=== PATIENT | male | born 1955 | race Caucasian/White ===

== ENCOUNTER 2020-06-05 12:33 | Inpatient (IN) | payer MEDICAID ==
[~2020-06-05] VITALS: Ht 170.2 cm; Wt 90.7 kg
[2020-06-05] MEDS ORDERED: DEXAMETHASONE 4MG/ML 1ML VIAL IV ONE (13:15)
[2020-06-05 14:00] LABS: BASOPHILS % 0.7 % (0.0-2.0); EOSINOPHILS % 0.5 % (0.0-5.0); LYMPHOCYTES % 10.6 % (20.0-50.0); MEAN CORPUSCULAR HEMOGLOBIN 29.8 pg (28.0-32.0); MEAN CORPUSCULAR VOLUME 89.5 fL (80.0-94.0); MEAN PLATELET VOLUME 7.3 fl (7.4-10.4); MONOCYTES % 9.4 % (2.0-8.0); NEUTROPHILS % 78.8 % (40.0-76.0); PLATELET 488 x1000/uL (130-400); RED BLOOD CELL COUNT 4.03 mill/uL (4.7-6.1); RED CELL DISTRIBUTION WIDTH 13.8 % (11.6-14.6)
[2020-06-05 14:07] LABS: CHLORIDE 102 mEq/L (98-107)
[2020-06-05 14:13] LABS: INR 1.2; PROTHROMBIN TIME 12.4 sec (9.6-11.0)
[2020-06-05 14:15] LABS: CREATINE KINASE 47 IU/L (39-308)
[2020-06-05 14:25] LABS: FIBRINOGEN > 900 mg/dL (200-400)
[2020-06-05] MEDS ORDERED: PIPERACILLIN/TAZ 3.375G PREMIX 50 ML IV SCH (14:30)
[2020-06-05 16:21] LABS: CLARITY URINE CLEAR (CLEAR); COLOR URINE YELLOW (YELLOW); KETONES URINE NEGATIVE (NEGATIVE); LEUKOCYTE ESTERASE URINE NEGATIVE (NEGATIVE); NITRITE URINE NEGATIVE (NEGATIVE); OCCULT BLOOD URINE NEGATIVE (NEGATIVE); PROTEIN URINE NEGATIVE (NEGATIVE); SPECIFIC GRAVITY URINE 1.009 (1.005-1.030)
[2020-06-05] MEDS ORDERED: ONDANSETRON HCL 4MG/2ML INJ IV PRN (18:00)
[2020-06-05] MEDS ORDERED: CLONIDINE 0.1MG TABLET PO PRN (18:00)
[2020-06-05] MEDS ORDERED: KETOROLAC 15MG/ML VIAL IV PRN (18:00)
[2020-06-05] MEDS ORDERED: NA PHOS,M-B/NA PHOS,DI-BA ENEMA 118ML PR PRN (18:00)
[2020-06-05] MEDS ORDERED: NITROGLYCERIN 0.4MG TABLET SL SL PRN (18:00)
[2020-06-05] MEDS ORDERED: ALBUTEROL 6.7GM HFA INHALER ORI PRN (18:00)
[2020-06-05] MEDS ORDERED: ZOLPIDEM TARTRATE 5MG TABLET PO PRN (18:00)
[2020-06-05] MEDS ORDERED: GUAIFENESIN 200MG/10ML SUGAR FREE UDC PO PRN (18:00)
[2020-06-05] MEDS ORDERED: MAGNESIUM/ALUMINUM HYDROXIDE/SIMETHICONE 30ML UDC PO PRN (18:00)
[2020-06-05] MEDS ORDERED: ACETAMINOPHEN 325MG TABLET PO PRN ×2 (18:00)
[2020-06-05 18:53] LABS: FOLIC ACID (FOLATE) SERUM 4.7 ng/mL (>5.38)
[2020-06-05] MEDS ORDERED: CEFTRIAXONE 1 G PREMIX 50 ML IV SCH (20:00)
[2020-06-05] MEDS ORDERED: AZITHROMYCIN 500 MG in DEXT 5% WATER 250 ML IV SCH (20:00)
[2020-06-05] MEDS: ENOXAPARIN 40MG/0.4ML SYR SUBCUT SCH (20:37)
[2020-06-05 22:14] LABS: *AMPHETAMINES SCREEN URINE NEGATIVE (NEGATIVE); *BARBITURATES SCREEN URINE NEGATIVE (NEGATIVE); *COCAINE SCREEN URINE NEGATIVE (NEGATIVE)
[2020-06-05 22:15] LABS: *BENZODIAZEPINES SCREEN URINE NEGATIVE (NEGATIVE); CANNABINOID URINE SCREEN NEGATIVE (NEGATIVE); METHADONE URINE SCREEN NEGATIVE (NEGATIVE); OPIATES URINE SCREEN NEGATIVE (NEGATIVE); PHENCYCLIDINE URINE SCREEN NEGATIVE (NEGATIVE)
[2020-06-05] MEDS: GUAIFENESIN/DM 600MG/30MG ER TAB 12HR PO SCH (22:23)
[2020-06-05] MEDS: FAMOTIDINE 20MG TABLET PO SCH (22:24)
[2020-06-05] MEDS: ASCORBIC ACID 500 MG TABLET PO SCH (22:24)
[2020-06-05] MEDS ORDERED: DEXTROSE 50% WATER 50ML SYRINGE IV PRN (23:00)
[2020-06-05] MEDS ORDERED: FOLIC ACID 1 MG in SODIUM CHLORIDE 0.9% 500 ML IV ONE (23:00)
[2020-06-05] MEDS: INSULIN GLARGINE UD 100 UNITS/ML SYR SUBCUT SCH (23:21)
[2020-06-05 23:54] LABS: CREATINE KINASE 32 IU/L (39-308)
[2020-06-05 23:55] LABS: CREATINE KINASE MB FRACTION < 1.0 ng/mL (0.5-3.6)
[2020-06-06 08:00] VITALS: BP 122/62
[2020-06-06] MEDS: FAMOTIDINE 20MG TABLET PO SCH ×2 (08:23→21:40)
[2020-06-06] MEDS: ASPIRIN 325MG EC TABLET PO SCH (08:23)
[2020-06-06] MEDS: ASCORBIC ACID 500 MG TABLET PO SCH ×2 (08:24→21:40)
[2020-06-06] MEDS: CHOLECALCIFEROL (D3) 1000 UNIT TABLET PO SCH (08:24)
[2020-06-06] MEDS: DEXAMETHASONE 10 MG/ML VIAL IV SCH (09:47)
[2020-06-06] MEDS: GUAIFENESIN/DM 600MG/30MG ER TAB 12HR PO SCH ×2 (09:48→21:40)
[2020-06-06] MEDS: FOLIC ACID 1MG TABLET PO SCH (09:48)
[2020-06-06] MEDS: ZINC SULFATE 220 MG ( 50 ) CAPSULE PO SCH (09:48)
[2020-06-06] MEDS: INSULIN GLARGINE UD 100 UNITS/ML SYR SUBCUT SCH (11:14)
[2020-06-06 12:00] VITALS: BP 117/58
[2020-06-06 16:00] VITALS: BP 130/77
[2020-06-06 17:33] LABS: HEMATOCRIT. 39.6 % (42.0-52.0); MEAN CORPUSCULAR HEMOGLOBIN 29.5 pg (28.0-32.0); MEAN CORPUSCULAR VOLUME 89.9 fL (80.0-94.0); MEAN PLATELET VOLUME 7.9 fl (7.4-10.4); PLATELET 514 x1000/uL (130-400); RED BLOOD CELL COUNT 4.41 mill/uL (4.7-6.1); RED CELL DISTRIBUTION WIDTH 13.7 % (11.6-14.6)
[2020-06-06 17:49] LABS: CHLORIDE 98 mEq/L (98-107)
[2020-06-06 17:56] LABS: PHOSPHORUS 3.4 mg/dL (2.5-4.9)
[2020-06-06 17:58] LABS: CREATINE KINASE 34 IU/L (39-308)
[2020-06-06 18:01] LABS: CREATINE KINASE MB FRACTION < 1.0 ng/mL (0.5-3.6)
[2020-06-06] MEDS ORDERED: DEXTROSE 50% WATER 50ML SYRINGE IV PRN (19:45)
[2020-06-06 20:00] VITALS: BP 122/62
[2020-06-06] MEDS: ENOXAPARIN 40MG/0.4ML SYR SUBCUT SCH (21:40)
[2020-06-06] MEDS: CEFTRIAXONE 1,000 MG in DEXTROSE 5% WATER 50 ML IV SCH (21:40)
[2020-06-06] MEDS: AZITHROMYCIN 500 MG in DEXT 5% WATER 250 ML IV SCH (21:41)
[2020-06-06] MEDS: BLOOD SUGAR DIAGNOSTIC STRIP TEST SCH (21:41)
[2020-06-06] MEDS: INSULIN LISPRO 100 UNITS/ML SUBCUT SCH (21:44)
[2020-06-06 22:57] LABS: PLATELET ESTIMATE INCREASED
[2020-06-07] VITALS: BP 117/64
[2020-06-07 04:00] VITALS: BP 101/64
[2020-06-07] MEDS: BLOOD SUGAR DIAGNOSTIC STRIP TEST SCH ×4 (06:46→21:11)
[2020-06-07] MEDS: INSULIN LISPRO 100 UNITS/ML SUBCUT SCH ×4 (06:47→21:11)
[2020-06-07 08:00] VITALS: BP 104/66
[2020-06-07] MEDS: ASPIRIN 325MG EC TABLET PO SCH (09:23)
[2020-06-07] MEDS: ASCORBIC ACID 500 MG TABLET PO SCH ×2 (09:23→21:08)
[2020-06-07] MEDS: GUAIFENESIN/DM 600MG/30MG ER TAB 12HR PO SCH ×2 (09:23→21:08)
[2020-06-07] MEDS: ZINC SULFATE 220 MG ( 50 ) CAPSULE PO SCH (09:23)
[2020-06-07] MEDS: FOLIC ACID 1MG TABLET PO SCH (09:23)
[2020-06-07] MEDS: DEXAMETHASONE 10 MG/ML VIAL IV SCH (09:23)
[2020-06-07] MEDS: FAMOTIDINE 20MG TABLET PO SCH ×2 (09:23→21:08)
[2020-06-07] MEDS: CHOLECALCIFEROL (D3) 1000 UNIT TABLET PO SCH (09:23)
[2020-06-07] MEDS: DOCUSATE SODIUM 100MG CAPSULE PO PRN (09:33)
[2020-06-07] MEDS: INSULIN GLARGINE UD 100 UNITS/ML SYR SUBCUT SCH (10:27)
[2020-06-07 12:00] VITALS: BP 89/58
[2020-06-07 20:00] VITALS: BP 113/54
[2020-06-07] MEDS: AZITHROMYCIN 500 MG in DEXT 5% WATER 250 ML IV SCH (21:07)
[2020-06-07] MEDS: CEFTRIAXONE 1,000 MG in DEXTROSE 5% WATER 50 ML IV SCH (21:07)
[2020-06-07] MEDS: ENOXAPARIN 40MG/0.4ML SYR SUBCUT SCH (21:08)
[2020-06-08] VITALS: BP 101/62
[2020-06-08 04:00] VITALS: BP 102/64
[2020-06-08 07:50] VITALS: BP 104/57
[2020-06-08] MEDS: CHOLECALCIFEROL (D3) 1000 UNIT TABLET PO SCH (08:19)
[2020-06-08] MEDS: FOLIC ACID 1MG TABLET PO SCH (08:19)
[2020-06-08] MEDS: ALBUTEROL 6.7GM HFA INHALER ORI SCH ×3 (08:19→20:52)
[2020-06-08] MEDS: DEXAMETHASONE 10 MG/ML VIAL IV SCH (08:20)
[2020-06-08] MEDS: FAMOTIDINE 20MG TABLET PO SCH ×2 (08:20→20:50)
[2020-06-08] MEDS: ASCORBIC ACID 500 MG TABLET PO SCH ×2 (08:20→20:50)
[2020-06-08] MEDS: ASPIRIN 325MG EC TABLET PO SCH (08:20)
[2020-06-08] MEDS: ZINC SULFATE 220 MG ( 50 ) CAPSULE PO SCH (08:20)
[2020-06-08] MEDS: GUAIFENESIN/DM 600MG/30MG ER TAB 12HR PO SCH ×2 (08:20→20:50)
[2020-06-08] MEDS: INSULIN GLARGINE UD 100 UNITS/ML SYR SUBCUT SCH (10:28)
[2020-06-08 12:00] VITALS: BP 113/64
[2020-06-08] MEDS: BLOOD SUGAR DIAGNOSTIC STRIP TEST SCH ×3 (12:25→20:52)
[2020-06-08] MEDS: INSULIN LISPRO 100 UNITS/ML SUBCUT SCH ×3 (12:32→20:52)
[2020-06-08 16:00] VITALS: BP 110/66
[2020-06-08 20:00] VITALS: BP 111/64
[2020-06-08] MEDS: AZITHROMYCIN 500 MG in DEXT 5% WATER 250 ML IV SCH (20:49)
[2020-06-08] MEDS: CEFTRIAXONE 1,000 MG in DEXTROSE 5% WATER 50 ML IV SCH (20:49)
[2020-06-08] MEDS: ENOXAPARIN 40MG/0.4ML SYR SUBCUT SCH (20:50)
[2020-06-09] VITALS: BP 97/56
[2020-06-09] MEDS: ALBUTEROL 6.7GM HFA INHALER ORI SCH ×4 (03:00→20:51)
[2020-06-09 04:00] VITALS: BP 101/63
[2020-06-09] MEDS: BLOOD SUGAR DIAGNOSTIC STRIP TEST SCH ×4 (06:20→20:52)
[2020-06-09 08:00] VITALS: BP 117/59
[2020-06-09] MEDS: ZINC SULFATE 220 MG ( 50 ) CAPSULE PO SCH (09:00)
[2020-06-09] MEDS: FAMOTIDINE 20MG TABLET PO SCH ×2 (10:26→20:50)
[2020-06-09] MEDS: GUAIFENESIN/DM 600MG/30MG ER TAB 12HR PO SCH ×2 (10:26→20:50)
[2020-06-09] MEDS: ASPIRIN 325MG EC TABLET PO SCH (10:26)
[2020-06-09] MEDS: FOLIC ACID 1MG TABLET PO SCH (10:26)
[2020-06-09] MEDS: DEXAMETHASONE 10 MG/ML VIAL IV SCH (10:26)
[2020-06-09] MEDS: DOCUSATE SODIUM 100MG CAPSULE PO PRN (10:32)
[2020-06-09] MEDS: ASCORBIC ACID 500 MG TABLET PO SCH ×2 (10:32→20:50)
[2020-06-09] MEDS: CHOLECALCIFEROL (D3) 1000 UNIT TABLET PO SCH (10:40)
[2020-06-09] MEDS: INSULIN GLARGINE UD 100 UNITS/ML SYR SUBCUT SCH (11:26)
[2020-06-09 12:00] VITALS: BP 125/62
[2020-06-09] MEDS: INSULIN LISPRO 100 UNITS/ML SUBCUT SCH ×4 (14:07→20:51)
[2020-06-09 16:00] VITALS: BP_SYST 139; BP_SYST 99; BP_DIAS 53
[2020-06-09 20:00] VITALS: BP 109/67
[2020-06-09] MEDS: CEFTRIAXONE 1,000 MG in DEXTROSE 5% WATER 50 ML IV SCH (20:39)
[2020-06-09] MEDS: ENOXAPARIN 40MG/0.4ML SYR SUBCUT SCH (20:40)
[2020-06-09] MEDS: AZITHROMYCIN 500 MG in DEXT 5% WATER 250 ML IV SCH (20:50)
[2020-06-10] VITALS: BP 106/65
[2020-06-10] MEDS: ALBUTEROL 6.7GM HFA INHALER ORI SCH ×4 (02:16→21:00)
[2020-06-10 04:11] VITALS: BP 99/58
[2020-06-10] MEDS: BLOOD SUGAR DIAGNOSTIC STRIP TEST SCH ×4 (06:21→21:15)
[2020-06-10] MEDS: INSULIN LISPRO 100 UNITS/ML SUBCUT SCH ×4 (07:40→21:00)
[2020-06-10 08:00] VITALS: BP 112/56
[2020-06-10] MEDS: DEXAMETHASONE 10 MG/ML VIAL IV SCH (08:31)
[2020-06-10] MEDS: ASPIRIN 325MG EC TABLET PO SCH (08:31)
[2020-06-10] MEDS: ZINC SULFATE 220 MG ( 50 ) CAPSULE PO SCH (08:31)
[2020-06-10] MEDS: FOLIC ACID 1MG TABLET PO SCH (08:32)
[2020-06-10] MEDS: ASCORBIC ACID 500 MG TABLET PO SCH ×2 (08:32→20:53)
[2020-06-10] MEDS: FAMOTIDINE 20MG TABLET PO SCH ×2 (08:32→20:53)
[2020-06-10] MEDS: GUAIFENESIN/DM 600MG/30MG ER TAB 12HR PO SCH ×2 (10:23→20:53)
[2020-06-10] MEDS: INSULIN GLARGINE UD 100 UNITS/ML SYR SUBCUT SCH (10:24)
[2020-06-10] MEDS: CHOLECALCIFEROL (D3) 1000 UNIT TABLET PO SCH (12:27)
[2020-06-10 20:00] VITALS: BP 107/60
[2020-06-10] MEDS: ENOXAPARIN 40MG/0.4ML SYR SUBCUT SCH (20:34)
[2020-06-10] MEDS ORDERED: ZOLPIDEM TARTRATE 5MG TABLET PO PRN (22:45)
[2020-06-11] VITALS: BP 103/67
[2020-06-11] MEDS: ALBUTEROL 6.7GM HFA INHALER ORI SCH ×4 (03:00→21:50)
[2020-06-11 04:00] VITALS: BP 101/66
[2020-06-11] MEDS: INSULIN LISPRO 100 UNITS/ML SUBCUT SCH ×4 (07:40→21:49)
[2020-06-11 08:00] VITALS: BP 108/63
[2020-06-11] MEDS: BLOOD SUGAR DIAGNOSTIC STRIP TEST SCH ×4 (08:06→21:17)
[2020-06-11] MEDS: INSULIN GLARGINE UD 100 UNITS/ML SYR SUBCUT SCH (09:01)
[2020-06-11] MEDS: DEXAMETHASONE 10 MG/ML VIAL IV SCH (09:01)
[2020-06-11] MEDS: ZINC SULFATE 220 MG ( 50 ) CAPSULE PO SCH (09:02)
[2020-06-11] MEDS: GUAIFENESIN/DM 600MG/30MG ER TAB 12HR PO SCH ×2 (09:02→21:48)
[2020-06-11] MEDS: CHOLECALCIFEROL (D3) 1000 UNIT TABLET PO SCH (09:02)
[2020-06-11] MEDS: ASCORBIC ACID 500 MG TABLET PO SCH ×2 (09:02→21:48)
[2020-06-11] MEDS: FAMOTIDINE 20MG TABLET PO SCH ×2 (09:02→21:48)
[2020-06-11] MEDS: ASPIRIN 325MG EC TABLET PO SCH (09:02)
[2020-06-11] MEDS: FOLIC ACID 1MG TABLET PO SCH (09:02)
[2020-06-11 12:00] VITALS: BP 129/71
[2020-06-11 16:00] VITALS: BP 109/59
[2020-06-11 20:00] VITALS: BP 109/69
[2020-06-11] MEDS ORDERED: ZOLPIDEM TARTRATE 5MG TABLET PO PRN (21:45)
[2020-06-11] MEDS: ENOXAPARIN 30MG/0.3ML SYR SUBCUT SCH (21:49)
[2020-06-12] VITALS: BP 114/66
[2020-06-12] MEDS: ALBUTEROL 6.7GM HFA INHALER ORI SCH ×2 (03:50→08:17)
[2020-06-12 04:00] VITALS: BP 106/72
[2020-06-12] MEDS: BLOOD SUGAR DIAGNOSTIC STRIP TEST SCH ×2 (07:10→12:42)
[2020-06-12] MEDS: INSULIN LISPRO 100 UNITS/ML SUBCUT SCH ×2 (07:40→12:40)
[2020-06-12 08:00] VITALS: BP 98/56
[2020-06-12] MEDS: ZINC SULFATE 220 MG ( 50 ) CAPSULE PO SCH (08:15)
[2020-06-12] MEDS: ASPIRIN 325MG EC TABLET PO SCH (08:15)
[2020-06-12] MEDS: CHOLECALCIFEROL (D3) 1000 UNIT TABLET PO SCH (08:15)
[2020-06-12] MEDS: ASCORBIC ACID 500 MG TABLET PO SCH (08:15)
[2020-06-12] MEDS: FAMOTIDINE 20MG TABLET PO SCH (08:15)
[2020-06-12] MEDS: GUAIFENESIN/DM 600MG/30MG ER TAB 12HR PO SCH (08:16)
[2020-06-12] MEDS: DEXAMETHASONE 10 MG/ML VIAL IV SCH (08:16)
[2020-06-12] MEDS: FOLIC ACID 1MG TABLET PO SCH (08:16)
[2020-06-12] MEDS: ENOXAPARIN 30MG/0.3ML SYR SUBCUT SCH (08:16)
[2020-06-12] MEDS: INSULIN GLARGINE UD 100 UNITS/ML SYR SUBCUT SCH (10:14)
[2020-06-12 12:00] VITALS: BP 106/70
[2020-06-12 13:13] VITALS: BP 106/70
== END 2020-06-12 14:20 | disposition home or self-care (01) | DRG 720 ==
LOC: ER 12:37 → MICUSO 17:51 → EDBEDREQ 18:02 → 8WST 06-06 08:08
PROVIDERS: ADMIT Internal Medicine; ATTEND Internal Medicine
DX: A41.89 Other specified sepsis (principal); R65.20 Severe sepsis without septic shock; U07.1 COVID-19; J96.01 Acute respiratory failure with hypoxia; J12.82 Pneumonia due to coronavirus disease 2019; E83.51 Hypocalcemia; E53.8 Deficiency of other specified B group vitamins; E43 Unspecified severe protein-calorie malnutrition; D63.8 Anemia in other chronic diseases classified elsewhere; E11.9 Type 2 diabetes mellitus without complications; F17.210 Nicotine dependence, cigarettes, uncomplicated; Z68.31 Body mass index [BMI] 31.0-31.9, adult
CPT/HCPCS: 36415; 71045; 80053; 80061; 80305; 81003; 82550; 82553; 82607; 82728; 82746; 82962; 83036; 83540; 83550; 83605; 83735; 83880; 84100; 84145; 84484; 85025; 85384; 86140; 93005; 93970; 99291; J0456; J0696; J1100; J1650; J1815; J2543; J3490; J7040; J7060; U0003